=== PATIENT | male | born 1990 | race Caucasian/White ===

== ENCOUNTER 2020-10-15 16:16 | Outpatient (CLI) | payer OTHER, SELFPAY ==
--- NOTE | ~2020-10-15 | XR_ITS ---
XR lumbar spine 2-3V DATE: 10/15/2020 16:54 INDICATION: Low back pain radiating to right side TECHNIQUE: AP, lateral, coned lateral lumbosacral views COMPARISON: 11/19/2016 lumbar spine FINDINGS: No fracture or bone destruction or spondylolisthesis. The lumbar pedicles are intact. Lumba r and lumbosacral interspaces are well preserved. The sacroiliac joints appear normal. IMPRESSION: No significant abnormality Reviewed, dictated and finalized at location A. IMPRESSION: No significant abnormality
--- NOTE | ~2020-10-15 | XR_ITS ---
XR_CERV2-3V_CR DATE: 10/15/2020 16:53 INDICATION: Intermittent left arm numbness and limited movement TECHNIQUE: AP, open-mouth, lateral views COMPARISON: None FINDINGS: There is straightening of the cervical spine. C1 and C2 are normally aligned and the odontoid process is intact. No fracture or dislocation or locked facet or prevertebral soft tissue swelling. Cervical interspaces are relatively preserved. IMPRESSION: Straightening Reviewed, dictated and finalized at Location [facility]. Reviewed, dictated and finalized at location A. IMPRESSION: Straightening
[2020-10-15 16:30] LABS: Basophils Absolute Auto 0.09 K/mm3 (0.00-0.10); Basophils Percent Auto 0.8 % (0.0-1.0); Eosinophils Absolute Auto 0.13 K/mm3 (0.02-0.50); Eosinophils Percent Auto 1.2 % (1.0-6.0); Hematocrit 43.8 % (40.0-54.0); Hemoglobin 14.8 g/dL (14.0-18.0); Immature Granulocyte Absolute 0.02 K/mm3 (0.00-0.00); Immature Granulocyte Percent A 0.2 % (0.0-0.0); Lymphocytes Absolute Auto 2.49 K/mm3 (1.10-4.50); Lymphocytes Percent Auto 22.5 % (18.0-42.0); Mean Corpuscular HGB Conc 33.8 g/dL (32.0-36.0); Mean Corpuscular Hemoglobin 29.4 pg (27.0-31.0); Mean Corpuscular Volume 86.9 fL (78.0-102.0); Mean Platelet Volume 9.6 fl (8.7-11.0); Monocytes Absolute Auto 0.87 K/mm3 (0.10-0.90); Monocytes Percent Auto 7.9 % (2.0-11.0); Neutrophils Absolute Auto 7.5 K/mm3 (1.7-7.2); Neutrophils Percent Auto 67.4 % (50.0-70.0); Platelet Count Result 324 K/mm3 (150-420); Red Blood Count 5.04 M/mm3 (4.70-6.10); Red Cell Distribution Width 11.9 % (11.6-14.4); White Blood Count 11.1 K/mm3 (4.8-10.8)
[2020-10-15 16:32] LABS: Add Urine Microscopic? NO; Appearance Urine Clear (Clear); Bilirubin Urine Negative (Negative); Blood Urine Negative (Negative); Color Urine Light Yellow (Yellow); Glucose Urine UA Negative (Negative); Ketones Urine Negative (Negative); Leukocyte Esterase Ur Negative (Negative); Nitrate Urine Negative (Negative); Protein Urine Negative (Negative); Urobilinogen Urine 0.2 mg/dL (0.2-1.0)
[2020-10-15 16:58] LABS: Alanine Aminotransferase 46 U/L (16-63); Albumin Level 4.2 g/dL (3.4-5.0); Alkaline Phosphatase 81 U/L (46-116); Anion Gap 9 mmol/L (8-16); Aspartate Amino Transferase 28 U/L (15-37); Bilirubin,Total 0.4 mg/dL (0.00-1.00); Blood Urea Nitrogen 22 mg/dL (7-18); Calcium 9.9 mg/dL (8.5-10.1); Carbon Dioxide 32 mmol/L (21-32); Chloride 102 mmol/L (98-108); Cholesterol 231 mg/dL (0-200); Estimated Glomerular Filt Rate > 60; Glucose 89 mg/dL (70-99); HDL Direct 53 mg/dL (40-60); LDL Cholesterol Calculated 140 mg/dL (<130); Osmolality Calculated 298 mOsm/kg (285-295); Potassium 4.3 mmol/L (3.5-5.1); Sodium 143 mmol/L (136-145); Thyroid Stimulating Hormone 2.02 uIU/mL (0.36-3.74); Total Protein 7.7 g/dL (6.4-8.2); Triglycerides 192 mg/dL (0-150)
== END 2020-10-15 16:17 | disposition home or self-care (01) ==
LOC: CHSLAB 16:20
PROVIDERS: PCP Internal Medicine; Visit Provider Internal Medicine
DX: Z00.00 Encounter for general adult medical examination without abnormal findings (principal); M54.2 Cervicalgia; M54.5 Low back pain
CPT/HCPCS: 36415; 72040; 72100; 80053; 80061; 81003; 84443; 85025

== ENCOUNTER 2021-03-06 13:27 | Emergency (ER) | payer OTHER, SELFPAY ==
[2021-03-06 13:36] VITALS: BP 133/88; PULSE 71; RESP 18; TEMP 36.4; O2SAT 97
--- NOTE | 2021-03-06 14:13 | ED.SKABFB ---
HPI - Skin/Abscess/Foreign Bdy General Chief complaint: Upper Respiratory Infection Stated complaint: Cough,Sore Throat,Rash Source: patient and RN notes reviewed Limitations: no limitations History of Present Illness HPI narrative: The vaccinated patient, previously mostly healthy non-smoker/nondrinker, presents with sore throat and rash. Patient states he has pets/allergy triggers at home; and now has 1/2-week history of NONpruritic pink, somewhat raised and scaling rash on his trunk and extremities, that seem to began on his foot. Eruption seems to spare palms and mucosal areas; this was preceded by minimal scratchy throat and dry cough for the last week. No fever, cough, wheeze, loss of taste/smell, CP, vomiting/diarrhea, S OB. Related Data Allergies Allergy/AdvReac Type Severity Reaction Status Date / Time No Known Allergies Allergy Mild Verified 03/06/21 13:46 Review of Systems Review of Systems: General/Constitutional: No weight loss,fever Eyes: N0: Redness,discharge Ears/Nose/Throat: No: Epistaxis,ear discharge Respiratory: Denies: Hemoptysis Gastrointestinal: No Vomiting, Bleeding-rectal Skin: No Lumps, REPORTS eruption Neurologic: No Focal Weakness,Sz Hematologic: Denies: Petechiae/Purpura Psychiatric: No: Suicida ideationl All Other Systems: Reviewed and Negative PMFSH Comments At time of signature, agree with nursing past medical, surgical, social and family history. There is no relevant family history pertinent to the presenting complaint Exam Narrative: General Appearance: Well appearing, Well nourished EYE: PERRLA, Conjunctiva clear Ears: Auditory canal normal, TM normal Nose: No-rhinorrhea, mucousal erythema Mouth/Throat: MM moist, Uvula midline, Pharyngeal erythema Neck: Supple, No adenopathy Respiratory: No respiratory distress, Breath sounds equal, Clear to auscultation Cardiovascular: RRR, No JVD Musculoskeletal: Non tender, Normal strength Skin: Warm, Dry,; blanching maculopapular eruption of the trunk and extremities with scaling and some slight central clearing, no herald patch seen Neurological: A&O x3, CN II-XII intact Psychiatric: Normal mood, Normal affect Course Vital Signs Vital signs: Vital Signs Temperature 97.5 F L 03/06/21 13:36 Pulse Rate 71 03/06/21 13:36 Respiratory Rate 18 03/06/21 13:36 Blood Pressure 133/88 03/06/21 13:36 Pulse Oximetry 97 03/06/21 13:36 Temperature 97.5 F L 03/06/21 13:36 Pulse Rate 71 03/06/21 13:36 Respiratory Rate 18 03/06/21 13:36 Blood Pressure 133/88 03/06/21 13:36 Pulse Oximetry 97 03/06/21 13:36 MDM - Skin/Abscess/Foreign Bdy Lab Data Labs: Strep Screen Presumptive Negative *(Reference Range: Negative)* Discharge Plan Discharge Clinical Impression: Exanthematous infection Patient Disposition: Home, Self-Care Condition: Stable Instructions: Pityriasis rosea (ED), Sore Throat in Children (ED) Additional Instructions: Take Diflucan next week, after antibiotic Prescriptions: New azithromycin 250 mg tablet See Rx Instructions .ROUTE .COMPLEX Qty: 6 RF: 0 fluconazole 150 mg tablet 150 mg PO WEEKLY Qty: 2 RF: 0 lidocaine HCl [Lidocaine Viscous] 2 % solution 5 ml MUCOUS MEM QID PRN (Reason: pain) Qty: 100 RF: 0 benzonatate 100 mg capsule 100 mg PO TID PRN (Reason: cough) Qty: 20 RF: 2 benzonatate 100 mg capsule 100 mg PO TID PRN (Reason: cough) Qty: 20 RF: 2 Follow-up/Referrals: Gilberto Bhatti MD [Primary Care Provider] -
== END 2021-03-06 14:22 | disposition home or self-care (01) ==
PROVIDERS: Emergency Provider Emergency Medicine; PCP Internal Medicine
DX: B09 Unspecified viral infection characterized by skin and mucous membrane lesions (principal)
CPT/HCPCS: 87081; 87880; 99213; G0463

== ENCOUNTER 2023-02-23 14:31 | Outpatient (CLI) | payer BC, SELFPAY ==
--- NOTE | ~2023-02-23 | XR_ITS ---
XR shoulder LT min 2V 02/23/2023 14:54 Indication: Left shoulder pain Procedure: 4 views left shoulder Comparison: No prior studies for comparison. Findings: No fracture, subluxation or dislocation. There is no significant soft tissue abnormality. N o foreign bodies. Impression: 1: No significant bone or joint abnormality. Reviewed, dictated and finalized at location B. [employer] Impression: 1: No significant bone or joint abnormality.
--- NOTE | ~2023-02-23 | XR_ITS ---
EXAMINATION: XR lumbar spine 2-3V DATE: 02/23/2023 14:54 INDICATION: One year of low back pain TECHNIQUE: Anteroposterior and lateral views of the lumbar spine, and cone-down lateral view of the l umbosacral junction were obtained. COMPARISON: None. FINDINGS: Straightening of the normal lumbar lordosis. Vertebral body heights are normal. Mild right-sided vert ebral body height loss at L3-L4. Mild disc height loss with small endplate osteophytes at T11-T12. 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 Mild osteoarthritis at the bilateral hips. Mild ri ght-sided sacroiliac osteoarthritis. IMPRESSION: 1. Minimal to mild lumbar and lower thoracic spondylosis. Spondylosis. Reviewed, dictated and finalized at location A. [employer]
== END 2023-02-23 14:32 | disposition home or self-care (01) ==
LOC: CHSIMG 14:36
PROVIDERS: PCP Internal Medicine; Visit Provider Internal Medicine
DX: M54.50 Low back pain, unspecified (principal); M25.512 Pain in left shoulder; M43.06 Spondylolysis, lumbar region; M43.04 Spondylolysis, thoracic region
CPT/HCPCS: 72100; 73030

== ENCOUNTER 2023-02-24 09:27 | Outpatient (CLI) | payer BC, SELFPAY ==
[2023-02-24 09:42] LABS: Appearance Urine Clear (Clear); Basophils Percent Auto 1.4 % (0.0-1.0); Bilirubin Urine Negative (Negative); Blood Urine Negative (Negative); Color Urine Light Yellow (Yellow); Eosinophils Absolute Auto 0.11 K/mm3 (0.02-0.50); Eosinophils Percent Auto 1.5 % (1.0-6.0); Glucose Urine UA Negative (Negative); Hematocrit 45.6 % (40.0-54.0); Hemoglobin 15.5 g/dL (14.0-18.0); Immature Granulocyte Absolute 0.02 K/mm3 (0.00-0.00); Immature Granulocyte Percent A 0.3 % (0.0-0.0); Ketones Urine Negative (Negative); Leukocyte Esterase Ur Negative (Negative); Lymphocytes Absolute Auto 1.77 K/mm3 (1.10-4.50); Lymphocytes Percent Auto 24.7 % (18.0-42.0); Mean Corpuscular Hemoglobin 29.8 pg (27.0-31.0); Mean Corpuscular Volume 87.7 fL (78.0-102.0); Mean Platelet Volume 9.6 fl (8.7-11.0); Monocytes Absolute Auto 0.64 K/mm3 (0.10-0.90); Monocytes Percent Auto 8.9 % (2.0-11.0); Neutrophils Absolute Auto 4.5 K/mm3 (1.7-7.2); Neutrophils Percent Auto 63.2 % (50.0-70.0); Nitrate Urine Negative (Negative); Platelet Count Result 305 K/mm3 (150-420); Protein Urine Negative (Negative); Urobilinogen Urine 0.2 mg/dL (0.2-1.0); White Blood Count 7.2 K/mm3 (4.8-10.8)
[2023-02-24 09:51] LABS: Add Urine Microscopic? NO
[2023-02-24 10:18] LABS: Alanine Aminotransferase 49 U/L (16-63); Albumin Level 3.9 g/dL (3.4-5.0); Alkaline Phosphatase 62 U/L (46-116); Anion Gap 7 mmol/L (8-16); Aspartate Amino Transferase 29 U/L (15-37); Bilirubin,Total 0.6 mg/dL (0.00-1.00); Blood Urea Nitrogen 19 mg/dL (7-18); CRP < 0.5 mg/dL (0.0-0.9); Calcium 9.5 mg/dL (8.5-10.1); Carbon Dioxide 33 mmol/L (21-32); Chloride 102 mmol/L (98-108); Cholesterol 284 mg/dL (0-200); Estimated Glomerular Filt Rate > 60; Glucose 94 mg/dL (70-99); HDL Direct 60 mg/dL (40-60); LDL Cholesterol Calculated 201 mg/dL (<130); Osmolality Calculated 296 mOsm/kg (285-295); Potassium 4.3 mmol/L (3.5-5.1); Sodium 142 mmol/L (136-145); Thyroid Stimulating Hormone 2.19 uIU/mL (0.36-3.74); Total Protein 7.4 g/dL (6.4-8.2); Triglycerides 117 mg/dL (0-150)
== END 2023-02-24 09:28 | disposition home or self-care (01) ==
LOC: CHSLAB 09:28
PROVIDERS: PCP Internal Medicine; Visit Provider Internal Medicine
DX: M54.50 Low back pain, unspecified (principal); R19.4 Change in bowel habit; M25.512 Pain in left shoulder
CPT/HCPCS: 36415; 80053; 80061; 81003; 84443; 85025; 86140